=== PATIENT | male | born 1930 | race Caucasian/White ===

== ENCOUNTER → 2016-11-20 | Outpatient (CLI) | payer MEDICARE, OTHER ==
[~2016-11-20] VITALS: Ht 177.8 cm; Wt 119.5 kg
[~2016-11-20] MED LIST: AMIO200T7 PO; AMLO10TA2 PO; APIX5TAB PO; BUME1TAB17 PO; CARV3.123 PO; GLIM1TAB2 PO; MULT-1274 PO; PIOG15TA22 PO; POTA10CA37 PO; TAMS0.4C47 PO; URSO300C12 PO
== END ==
LOC: RC 09:15
PROVIDERS: ATTEND Internal Medicine Cardiovascular Disease
DX: I48.0 Paroxysmal atrial fibrillation (principal)
CPT/HCPCS: 94010; 94726

== ENCOUNTER 2016-12-16 12:20 | Outpatient (CLI) | payer MEDICARE, OTHER ==
[~2016-12-16] VITALS: Ht 180.3 cm; Wt 123.5 kg
[2016-12-16] VITALS (14 sets, daily range): BP systolic 138–173; BP diastolic 67–79; PULSE 42–57; RESP 14–21; TEMP 97.4–97.9; O2SAT 92–97; Ht 180.3 cm; Wt 123.5 kg
[~2016-12-16 12:20] MED LIST changes: +NORMAL SALINE 1,000 ML IV SCH
[2016-12-16 12:55] LABS: BASOPHILS % (AUTO) 0.7 % (0-2); EOSINOPHILS # (AUTO) 0.3 T/MM3 (0-0.5); EOSINOPHILS % (AUTO) 5.4 % (0-4); HCT - HEMATOCRIT 39.1 % (41-53); HGB - HEMOGLOBIN 12.8 GM/DL (13.5-17.5); IMMATURE GRANULOCYTE # (AUTO) 0.01 T/MM3 (0.00-0.03); IMMATURE GRANULOCYTE % (AUTO) 0.2 % (0.0-0.5); LYMPHOCYTES # (AUTO) 0.7 T/MM3 (1-4.8); LYMPHOCYTES % (AUTO) 14.3 % (23-45); MEAN CORPUSCULAR HGB 31.7 UUG (26-34); MEAN CORPUSCULAR HGB CONC(MCHC 32.7 GM/DL (31-37); MEAN CORPUSCULAR VOLUME 96.8 UM3 (80-100); MEAN PLATELET VOLUME 9.6 UM3 (9.4-12.4); MONOCYTES # (AUTO) 0.5 T/MM3 (0-0.8); MONOCYTES % (AUTO) 10.4 % (0-9.0); NEUTROPHILS #(AUTO)-ABSOLUTE 3.2 T/MM3 (1.8-7.7); RED BLOOD COUNT 4.04 M/MM3 (4.50-5.90); WBC - WHITE BLOOD COUNT 4.6 T/MM3 (4.5-11.0)
[2016-12-16 13:02] LABS: ANION GAP 15 MEQ/L (5-15); BUN/CREATININE RATIO 16 RATIO (6-26); CALCIUM 9.2 MG/DL (8.4-10.2); CHLORIDE 109 MEQ/L (98-107); CO2 - CARBON DIOXIDE 23 MEQ/L (22-30); CREATININE 2.2 MG/DL (0.8-1.5); GLOMERULAR FILTRATION RATE 29; GLUCOSE 114 MG/DL (75-110); POTASSIUM 4.8 MEQ/L (3.6-5); SODIUM 147 MEQ/L (134-144)
[2016-12-16] MEDS ORDERED: FLUT9.9S NS (13:09)
[2016-12-16] MEDS ORDERED: ALLO100T PO (13:09)
--- NOTE | 2016-12-16 13:51 | NUR ---
CM CM IN TO VISIT PATIENT, HE IS A&O. IS PRESENT. PATIENT PLANS TO DISCHARGE HOME, DENIES DISCHARGE NEEDS. CM CONTACT INFORMATION PROVIDED. LACE SCORE IS 3, NO FURTHER FOLLOW UP IS INDICATED. Addendum: 12/16/16 at 1352 by ADRIAN GILMORE RN Amended: Links added.
--- NOTE | 2016-12-16 14:42 | NUR ---
Dm Screen Diet: NPO Based on Jhon Horner with an activity factor of 1.3 and an injury 1.0, calories needs are 2539 kcal to maintain current weight Patient states when he checks his blood sugars they always range from the high 90's to the low 130's. Patient also states he doesn't drink soda and his states she has quit baking sugary desserts. Patient and did not see need for further diabetes education. When patient diet advances, international trade specialist recommends CC [address] Addendum: 12/16/16 at [address] Student charting reviewed by Hotel Reservation Agent.
[2016-12-16] MEDS ORDERED: LIDOCAINE 1% (10mg/ml) 30ml SDV ONE (14:51)
[2016-12-16] MEDS ORDERED: HEPARIN 1,000units in NS 500ml BAG IV ONE (14:51)
--- NOTE | 2016-12-16 15:20 | NUR ---
TO HEART CATH PATIENT TAKEN TO RESTAURANT SUPERVISOR AT THIS TIME VIA RESTAURANT SUPERVISOR STAFF AND CART. PT IN NO ACUTE DISTRESS AT TIME OF TRANSFER. CHART, CONSENT, AND BP CUFF SENT WITH PATIENT. WILL CONTINUE TO MONITOR.
[2016-12-16] MEDS ORDERED: FENTANYL 100mcg/2ml INJECTION ONE (15:26)
[2016-12-16] MEDS ORDERED: MIDAZOLAM 2mg/2ml INJECTION ONE (15:26)
[2016-12-16] MEDS ORDERED: VERAPAMIL 5mg/2ml INJECTION IV ONE (15:27)
[2016-12-16] MEDS ORDERED: NITROGLYCERIN 50mg/10ml INJECTION IV ONE (15:27)
[2016-12-16] MEDS ORDERED: HYDROCODONE/APAP 5 mg/325 mg TABLET PO PRN (16:00)
[2016-12-16] MEDS ORDERED: ACETAMINOPHEN 325 MG TABLET PO PRN (16:00)
[2016-12-16] MEDS ORDERED: ATROPINE 1 MG/ML VIAL IV PRN (16:00)
[2016-12-16] MEDS ORDERED: BISACODYL 5 MG E.C. TABLET PO PRN (16:00)
[2016-12-16] MEDS ORDERED: MORPHINE SULFATE 4 MG SYRINGE IV PRN ×2 (16:00)
[2016-12-16] MEDS ORDERED: LORAZEPAM 2 MG/ML INJECTION IV PRN (16:00)
[2016-12-16] MEDS ORDERED: ONDANSETRON 4mg/2ml INJECTION IV PRN (16:00)
[2016-12-16] MEDS ORDERED: PROMETHAZINE 25 MG INJECTION IV PRN (16:00)
[2016-12-16] MEDS ORDERED: LORAZEPAM 0.5 MG TABLET PO PRN (16:00)
[2016-12-16] MEDS ORDERED: BISACODYL 10 MG SUPPOSITORY RECTALLY PRN (16:00)
[2016-12-16] MEDS ORDERED: METOCLOPRAMIDE 10mg/2ml INJECTION IV PRN (16:00)
[2016-12-16] MEDS ORDERED: NITROGLYCERIN 0.4 MG SUBLINGUAL TABLET SL PRN (16:00)
[2016-12-16] MEDS ORDERED: MAG-AL + SIM LIQUID 30 ML UDC PO PRN (16:00)
[2016-12-16] MEDS ORDERED: MILK OF MAGNESIA 30 ML SUSP PO PRN (16:00)
--- NOTE | 2016-12-16 16:05 | NUR ---
FROM HEART CATH PATIENT ARRIVED FROM HEART CATH AT THIS TIME VIA CART AND COFFEE SAMPLER STAFF. A/OX3. ROOM AIR. VITAL SIGNS STABLE. PT ABLE TO TRANSFER SELF TO SURGICAL UNIT BED. RIGHT WRIST CLEAN, DRY, INTACT. NO S/S OF BLEEDING/HEMATOMA/EDEMA. WILL CONTINUE TO MONITOR.
--- NOTE | 2016-12-16 19:14 | NUR ---
DISMISSAL PATIENT DISMISSED TO HOME FOR SELF-CARE TO THE ER ENTRANCE VIA WHEELCHAIR. 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 STABLE AND ON ROOM AIR AT TIME OF DISMISSAL. PERSONAL BELONGINGS AND HOME MEDS SENT WITH PATIENT. D/C INSTRUCTIONS REVIEWED PRIOR TO D/C. TOPICS DISCUSSED INCLUDED: MEDICATIONS, S/S TO REPORT, FOLLOW UP APPOINTMENTS, TR BAND SITE INCISION/CARE. IV CATHETER REMOVED BY THIS RN. IV CATHETER TIP INTACT.
--- NOTE | 2016-12-17 10:05 | CVPROF ---
DATE OF PROCEDURE December 16, 2016 REFERRING PHYSICIAN Keny Yanes, DO INDICATION The patient is a pleasant 85-year-old gentleman with history with abnormal stress test and was referred for further evaluation by cardiac catheterization and possible intervention. INFORMED CONSENT Informed consent was obtained after explaining the procedure and the potential risks to the patient who agreed to proceed with the procedure. PROCEDURE 1. Left heart catheterization. 2. Coronary angiography. TECHNIQUE He was prepped and draped in the usual sterile techniques. Conscious sedation was performed using Versed and fentanyl. 1% lidocaine was used for local anesthesia. Using modified Seldinger technique, arterial access was obtained into the right radial artery with placement of a 6-Amharic arterial sheath. 300 mcg of nitroglycerin, 3000 units of heparin, and 1 mg of verapamil were given through the arterial sheath. CORONARY ANGIOGRAPHY Left main was free of significant lesions and bifurcated into left anterior descending and left circumflex arteries. The left anterior descending artery was a medium caliber vessel which wrapped around the apex with no significant lesions. First diagonal had about 30-40% stenosis and a very small aneurysmal segment. Left circumflex artery had minor irregularities with no significant lesions. Right coronary artery also had minor irregularities but no significant lesions. The patient tolerated the procedure well with no complications. IMPRESSION 1. 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 2. No other significant coronary obstructive disease. PLAN Medical management. DONALD
== END 2016-12-16 19:14 | disposition home or self-care (01) ==
LOC: CATH 12:20 → SRG 12:22 → CATH 19:14
PROVIDERS: ATTEND Internal Medicine Cardiovascular Disease
DX: I25.10 Atherosclerotic heart disease of native coronary artery without angina pectoris (principal); I25.41 Coronary artery aneurysm; R94.39 Abnormal result of other cardiovascular function study; I50.32 Chronic diastolic (congestive) heart failure; I48.0 Paroxysmal atrial fibrillation; I27.2 Other secondary pulmonary hypertension; I12.9 Hypertensive chronic kidney disease with stage 1 through stage 4 chronic kidney disease, or unspecified chronic kidney disease; N18.9 Chronic kidney disease, unspecified; E11.22 Type 2 diabetes mellitus with diabetic chronic kidney disease; E78.5 Hyperlipidemia, unspecified; I42.9 Cardiomyopathy, unspecified; Z79.899 Other long term (current) drug therapy; Z87.891 Personal history of nicotine dependence
CPT/HCPCS: 80048; 85025; 93005; 93454; C1769; C1887; C1893; J1644; J2250; J3010; J3490; J7030; Q9967; 93458